=== PATIENT | female | born 1955 | race African-American/Black ===

== ENCOUNTER 2022-09-01 12:07 | Outpatient (CLI) | payer OTHER, MEDICAID | END 2022-09-01 12:08 | disposition home or self-care (01) | LOC: MRI 12:07 | PROVIDERS: ATTEND Registered Nurse | DX: M25.512 Pain in left shoulder (principal); M19.012 Primary osteoarthritis, left shoulder; S46.912A Strain of unspecified muscle, fascia and tendon at shoulder and upper arm level, left arm, initial encounter ==

== ENCOUNTER 2022-11-12 13:19 | Outpatient (CLI) | payer OTHER, MEDICAID | END 2022-11-12 13:20 | disposition home or self-care (01) | LOC: BICCT 13:19 | PROVIDERS: ATTEND Family Medicine | DX: Z12.2 Encounter for screening for malignant neoplasm of respiratory organs (principal); F17.210 Nicotine dependence, cigarettes, uncomplicated | CPT/HCPCS: 71271 ==

== ENCOUNTER 2023-03-28 11:54 | Emergency (ER) | payer OTHER, MEDICAID | END 2023-03-28 15:17 | disposition home or self-care (01) | LOC: ERS 11:54 | DX: R22.1 Localized swelling, mass and lump, neck (principal); F17.210 Nicotine dependence, cigarettes, uncomplicated; I10 Essential (primary) hypertension; J44.9 Chronic obstructive pulmonary disease, unspecified; E11.9 Type 2 diabetes mellitus without complications; Z79.84 Long term (current) use of oral hypoglycemic drugs; Z79.899 Other long term (current) drug therapy | CPT/HCPCS: 93005 ==

== ENCOUNTER 2023-04-23 13:51 | Outpatient (CLI) | payer OTHER, MEDICAID | END 2023-04-23 13:52 | disposition home or self-care (01) | LOC: BICULT 13:51 | PROVIDERS: ATTEND Student in an Organized Health Care Education/Training Program | DX: R22.1 Localized swelling, mass and lump, neck (principal); E04.1 Nontoxic single thyroid nodule | CPT/HCPCS: 76536 ==